=== PATIENT | female | born 1980 | race Caucasian/White ===

== ENCOUNTER → 2016-07-18 | Outpatient (CLI) | payer MEDICARE ==
[2016-07-18 09:11] LABS: ABSOLUTE EOSINOPHILS # (AUTO) 0.1 10^3/uL (0.0-0.6); ABSOLUTE LYMPHOCYTES (AUTO) 1.7 10^3/uL (0.5-4.7); ABSOLUTE MONOCYTES (AUTO) 0.6 10^3/uL (0.1-1.4); BASOPHILS % (AUTO) 0.3 % (0-2); EOSINOPHILS % (AUTO) 1.4 % (0-6); HEMATOCRIT 37.8 % (36.0-47.0); HEMOGLOBIN 12.8 g/dL (12.0-15.5); HGB HCT DIFFERENCE 0.6; LYMPHOCYTES % (AUTO) 26.4 % (13-45); MEAN CORPUSCULAR HGB CONC 33.9 g/dL (32.0-36.0); MEAN CORPUSCULAR VOLUME 88 fl (80-97); MONOCYTES % (AUTO) 9.4 % (3-13); RED BLOOD COUNT 4.28 10^6/uL (3.72-5.28); RED CELL DISTRIBUTION WIDTH 12.2 % (11.5-14.0); SEGMENTED NEUTROPHILS % (AUTO) 62.5 % (42-78); WHITE BLOOD COUNT 6.4 10^3/uL (4.0-10.5)
[2016-07-18 09:25] LABS: ALANINE AMINOTRANSFERASE 33 U/L (9-52); ALBUMIN 4.3 g/dL (3.5-5.0); ALKALINE PHOSPHATASE 97 U/L (38-126); ANION GAP 12 (5-19); ASPARTATE AMINO TRANSFERASE 19 U/L (14-36); BILIRUBIN,TOTAL 1.2 mg/dL (0.2-1.3); BLOOD UREA NITROGEN 18 mg/dL (7-20); CALCIUM 9.6 mg/dL (8.4-10.2); CARBON DIOXIDE 24 mmol/L (22-30); CHLORIDE 105 mmol/L (98-107); CHOLESTEROL 157.91 mg/dL (0-200); CREATININE RESULT 0.83 mg/dL (0.52-1.25); Direct HDL 42 mg/dL (>40); GLUCOSE 99 mg/dL (75-110); POTASSIUM 4.3 mmol/L (3.6-5.0); SODIUM 140.7 mmol/L (137-145); TOTAL PROTEIN 7.3 g/dL (6.3-8.2); TRIGLYCERIDES 80 mg/dL (<150)
[2016-07-18 09:36] LABS: DIRECT LDL 104 mg/dL (<100)
== END ==
LOC: OD 07:48
PROVIDERS: ATTEND Nurse Practitioner Psychiatric/Mental Health
DX: F41.1 Generalized anxiety disorder (principal); N92.6 Irregular menstruation, unspecified; Z79.899 Other long term (current) drug therapy
CPT/HCPCS: 36415; 80053; 80061; 83036; 84703; 85025

== ENCOUNTER 2017-11-02 10:30 | Emergency (ER) | payer MEDICARE ==
[2017-11-02] MEDS ORDERED: NORMAL SALINE 1000 ML 1,000 ML IV ONE ×2 (10:38→12:53)
[2017-11-02 11:03] LABS: HEMATOCRIT 36.3 % (36.0-47.0); HEMOGLOBIN 12.4 g/dL (12.0-15.5); MEAN CORPUSCULAR HGB CONC 34.1 g/dL (32.0-36.0); MEAN CORPUSCULAR VOLUME 94 fl (80-97); PLATELET COUNT 214 10^3/uL (150-450); RED BLOOD COUNT 3.87 10^6/uL (3.72-5.28); RED CELL DISTRIBUTION WIDTH 12.6 % (11.5-14.0); WHITE BLOOD COUNT 10.8 10^3/uL (4.0-10.5)
[2017-11-02 11:08] LABS: APPEARANCE,URINE CLEAR; BILIRUBIN,URINE NEGATIVE (NEGATIVE); COLOR,URINE YELLOW; GLUCOSE, URINE NEGATIVE (NEGATIVE); KETONES,URINE NEGATIVE (NEGATIVE); LEUKOCYTE ESTERASE,URINE NEGATIVE (NEGATIVE); NITRITE,URINE NEGATIVE (NEGATIVE); PROTEIN,URINE NEGATIVE (NEGATIVE); UROBILINOGEN,URINE NEGATIVE mg/dL (<2.0)
[2017-11-02 11:20] LABS: ALANINE AMINOTRANSFERASE 34 U/L (9-52); ALBUMIN 4.3 g/dL (3.5-5.0); ALKALINE PHOSPHATASE 43 U/L (38-126); ANION GAP 14 (5-19); ASPARTATE AMINO TRANSFERASE 20 U/L (14-36); BILIRUBIN,DIRECT 0.2 mg/dL (0.0-0.4); BILIRUBIN,TOTAL 1.1 mg/dL (0.2-1.3); BLOOD UREA NITROGEN 22 mg/dL (7-20); CALCIUM 9.1 mg/dL (8.4-10.2); CARBON DIOXIDE 27 mmol/L (22-30); CHLORIDE 101 mmol/L (98-107); GLUCOSE 117 mg/dL (75-110); POTASSIUM 4.1 mmol/L (3.6-5.0); SODIUM 142.4 mmol/L (137-145)
[2017-11-02] MEDS ORDERED: RINGERS SOLUTION,LACTATED 1,000 ML IV ONE (11:24)
--- NOTE | 2017-11-02 11:30 | ER Document Report ---
ED General - General Chief Complaint: Nausea/Vomiting Stated Complaint: VOMITING Time Seen by Provider: 11/02/17 11:08 Notes: Patient says that she has been sick since about 230 this morning when she started vomiting. She says she is vomited a total of about 4 times, the last about 430 this morning. She does not feel like she is going to vomit anymore. She has not had any change in her bowel habits or diarrhea. She felt lightheaded and felt as if she might pass out. She had generalized aching of her back and her legs as well as a headache. Patient thinks she may have the flu. Has no respiratory symptoms. She went to her local [employer] office where they found her blood pressure was low and her blood sugar was normal. She was referred here by EMS with IV fluids started. Patient has not had any fever. She was well and felt fine yesterday. History of . LMP 10/24. PMH: Hypothyroid, bipolar. TRAVEL OUTSIDE OF THE [place] IN LAST 30 DAYS: No - Related Data Allergies/Adverse Reactions: No Known Allergies Allergy (Verified 05/15/14 10:02) Past Medical History - Social History Smoking Status: Unknown if Ever Smoked Cigarette use (# per day): No Frequency of alcohol use: Occasional Family History: Reviewed & Not Pertinent Patient has suicidal ideation: No Patient has homicidal ideation: No Endocrine Medical History: Reports: Hx Hypothyroidism. Denies: Hx Diabetes Mellitus Type 1, Hx Diabetes Mellitus Type 2, Hx Hyperthyroidism Psychiatric Medical History: Reports: Hx Bipolar Disorder, Hx Depression Past Surgical History: Reports: Hx Section - Immunizations Hx Diphtheria, Pertussis, Tetanus Vaccination: Yes Review of Systems - Review of Systems Notes: REVIEW OF SYSTEMS: CONSTITUTIONAL : Denies fever. EENT: Denies eye, ear, nose or mouth or throat pain or other symptoms. CARDIOVASCULAR: Denies chest pain. RESPIRATORY: Denies cough, chest congestion, or shortness of breath. GASTROINTESTINAL: See HPI. GENITOURINARY: Denies difficulty or painful urinating, urinary frequency, blood in urine. MUSCULOSKELETAL: Denies back or neck pain. Denies joint pain or swelling. SKIN: Denies rash or skin lesions. NEUROLOGICAL: Denies LOC or altered mental status. Denies headache. Denies sensory loss or motor deficits. ALL OTHER SYSTEMS REVIEWED AND NEGATIVE. Physical Exam - Vital signs Vitals: Temp Pulse Resp BP Pulse Ox 98.0 F 92 16 99/64 L 100 11/02/17 10:43 11/02/17 10:43 11/02/17 10:43 11/02/17 10:43 11/02/17 10:43 Interpretation: Normal, Hypotensive - Minimal, patient is a small stature, weighs only about 120 pounds. - Notes Notes: PHYSICAL EXAMINATION: GENERAL: Well-appearing, in no acute distress. Blood pressure slightly low with a systolic of 96. Drinking from a cup with a colored liquid and ice. HEAD: Atraumatic, normocephalic. EYES: Pupils equal round and reactive to light, extraocular movements intact. ENT: oropharynx clear without exudates. Moist mucous membranes. NECK: Normal range of motion, supple. LUNGS: Breath sounds clear and equal bilaterally. HEART: Regular rate and rhythm without murmurs. ABDOMEN: Soft, nontender. No guarding or rebound. No masses. No tenderness in the right lower quadrant. BACK: No tenderness throughout entire back. EXTREMITIES: Normal range of motion without pain. NEUROLOGICAL: Normal speech, normal gait. Normal sensory, motor, and reflex exams. Awake, alert, and oriented x3. Cranial nerves normal. PSYCH: Normal mood, normal affect. SKIN: Warm, dry, no rashes. Course - Re-evaluation Re-evalutation: 11/02/17 12:48 Patient remained stable. She has had nearly 2 L of fluid. Taking p.o. No abdominal pain. CBC shows a white count but slightly elevated, but with a very marked shift with 91 segs and 5 bands. Abdomen remains soft and nontender to press. 11/02/17 14:36 Patient has been up to the restroom without assistance and did fine. She has had 3 L of fluid now. Her blood pressure still remains with a systolic in the 90s, but I do not know what this patient's baseline is. There is no evidence of any bleeding. I repeated a CBC which showed her hemoglobin and white count down slightly, most likely dilutional from the IV fluids. Patient says she is feeling better. I reexamined her abdomen for the third time and there is no tenderness anywhere. She has no UTI symptoms and her urine is negative. She has no URI symptoms. My only concern is patient's white count and particular her shift, but I think this is all probably viral in origin. Her lactic acid level was negative. Patient has no URI symptoms. She has no UTI symptoms. Urine is normal. - Vital Signs Vital signs: Temp Pulse Resp BP Pulse Ox 98.0 F 92 16 99/64 L 100 11/02/17 10:43 11/02/17 10:43 11/02/17 10:43 11/02/17 10:43 11/02/17 10:43 - Laboratory Result Diagrams: 11/02/17 13:17 11/02/17 10:38 Laboratory results interpreted by me: 11/02/17 11/02/17 11/02/17 10:38 10:38 13:17 WBC 10.8 H RBC 3.70 L Hgb 11.7 L Hct 35.0 L Seg Neuts % (Manual) 91 H 90 H Band Neutrophils % 6 H Lymphocytes % (Manual) 2 L 0 L Monocytes % (Manual) 1 L Metamyelocytes % 1 H Abs Neuts (Manual) 10.5 H 8.6 H Abs Lymphs (Manual) 0.2 L 0.0 L BUN 22 H Glucose 117 H Discharge - Discharge Clinical Impression: Vomiting, Viral gastroenteritis, Transient hypotension, Leukocytosis Condition: Stable Disposition: HOME, SELF-CARE Additional Instructions: VOMITING: Vomiting (or nausea without vomiting) can be caused by many other different problems. It can mean that something's wrong with the stomach, such as ulcers or inflammation or the intestinal tract, such as appendicitis. But it can also be a symptom of a problem that has nothing to do with the stomach or intestines. Vomiting is common with severe headaches, earaches, tonsillitis, and kidney infections, etc. We see it with pneumonia or heart attacks. Drugs can cause nausea and vomiting. Many abdominal problems cause vomiting; for example, gallstones, kidney stones, pancreatitis, and intestinal obstruction ( blocked bowels). In most cases, curing the vomiting depends on fixing the problem that caused it. For temporary relief, we may use an anti-nausea medicine. For home use, we can prescribe suppositories, chewable pills, pills that dissolve in the mouth, or liquid anti-nausea drugs. If the vomiting seems to be caused by a problem in the stomach, acid-suppressing drugs may be prescribed as well. It's important to avoid dehydration. Sip small amounts of clear liquids ( soft drinks, tea, broth, etc) . Try to take fluids frequently even if you are vomiting to prevent dehydration. Take increasing amounts of fluid and when liquids are being consumed successfully, advance to small amounts of bland food (toast, soups, mashed potatoes, etc.) until you are able to resume a regular diet. Avoid aspirin, tobacco, and alcohol. If the vomiting worsens, if the problem that's making you vomit worsens, or if there's evidence of bleeding in the stomach (such as black, tarry stool, or bloody or black vomit), you should return immediately. Also, return if abdominal pain worsens or becomes localized to one area or you develop high fever. Call your doctor if you aren't improved in 24 hours. VIRAL SYNDROME: The physician has diagnosed a most likely viral infection. Viruses not only cause "colds," but can cause many different symptoms including generalized aching, fever, headache, cough, diarrhea, nausea, vomiting, and fatigue. The treatment, for the most part, is simply relief of symptoms. This means that antibiotics are usually not given. Rest, fluids, pain medications and, occasionally, medication for the specific symptoms that are most bothersome will be prescribed. Use good handwashing to avoid passing the virus to others. Shared toys should be cleaned with disinfectant. Clean the toilets, sinks, and counter surfaces in bathrooms. Launder clothing in hot water. Contact the physician if you develop any new or unusual symptoms such as severe headache, stiff neck, high fever, chest pain, productive cough, or shortness of breath. You should be rechecked if you don't see marked improvement within seven to 10 days. Viral illnesses generally do not last more than a day or 2 and I would expect that she will feel better tomorrow and back to normal by day after tomorrow. If you do not follow that progression of your illness, return for us to reevaluate you again. INTRAVENOUS (I V) FLUIDS: As part of your care today, you received intravenous (IV) fluids. IV fluids are administered to patients who are dehydrated or to those who have certain chemical (electrolyte) abnormalities that need correcting. ANTINAUSEA MEDICATION: You have been given a medication to suppress nausea and vomiting. This type of medication can be given as a shot, pill, or suppository. It will usually last for many hours. Pills and shots usually last six to eight hours. For the typical illness, only one or two doses of the medication may be necessary. Mild lightheadedness may occur. This type of medicine can cause drowsiness. Do not drive or operate dangerous machinery while under its influence. Do not mix with alcohol. See your doctor at once if you have muscle spasms or tightness, or uncontrollable motions (particularly of the neck, mouth, or jaw). Persistent vomiting or severe lightheadedness should also be evaluated by the physician. Drink plenty of fluids. Return if you begin to run a high fever. Return tomorrow if you are not feeling any better or you have return of your symptoms or new, concerning symptoms. FOLLOW-UP CARE: If you have been referred to a physician for follow-up care, call the physician s office for an appointment as you were instructed or within the next two days. If you experience worsening or a significant change in your symptoms, notify the physician immediately or return to the Emergency Department at any time for re-evaluation.
[2017-11-02 11:48] LABS: ABSOLUTE LYMPHOCYTES# (MANUAL) 0.2 10^3/uL (0.5-4.7); ABSOLUTE MONOCYTES # (MANUAL) 0.1 10^3/uL (0.1-1.4); ABSOLUTE NEUTROPHILS# (MANUAL) 10.5 10^3/uL (1.7-8.2); BAND NEUTROPHILS % (MANUAL) 5 % (3-5); BASOPHILS % (MANUAL) 0 % (0-2); EOSINOPHILS % (MANUAL) 0 % (0-6); LYMPHOCYTES % (MANUAL) 2 % (13-45); METAMYELOCYTES % (MANUAL) 1 % (0); MONOCYTES % (MANUAL) 1 % (3-13); SEGMENTED NEUTROPHILS % (MAN) 91 % (42-78); TOTAL CELLS COUNTED 100
[2017-11-02 11:49] LABS: OVALOCYTES SLIGHT; PLATELET COMMENT ADEQUATE; POIKILOCYTOSIS SLIGHT
[2017-11-02] MEDS ORDERED: ACETAMINOPHEN 325 MG TABLET PO ONE (12:46)
[2017-11-02 13:49] LABS: HEMOGLOBIN 11.7 g/dL (12.0-15.5); MEAN CORPUSCULAR HEMOGLOBIN 31.6 pg (27.0-33.4); MEAN CORPUSCULAR HGB CONC 33.5 g/dL (32.0-36.0); MEAN CORPUSCULAR VOLUME 95 fl (80-97); PLATELET COUNT 203 10^3/uL (150-450); RED CELL DISTRIBUTION WIDTH 12.5 % (11.5-14.0)
[2017-11-02 14:09] LABS: ABSOLUTE MONOCYTES # (MANUAL) 0.4 10^3/uL (0.1-1.4); ABSOLUTE NEUTROPHILS# (MANUAL) 8.6 10^3/uL (1.7-8.2); BAND NEUTROPHILS % (MANUAL) 6 % (3-5); BASOPHILS % (MANUAL) 0 % (0-2); EOSINOPHILS % (MANUAL) 0 % (0-6); LYMPHOCYTES % (MANUAL) 0 % (13-45); MONOCYTES % (MANUAL) 4 % (3-13); PLATELET CLUMPS PRESENT; RBC MORPHOLOGY COMMENT NORMO-CYTIC/CHROMIC; SEGMENTED NEUTROPHILS % (MAN) 90 % (42-78); TOTAL CELLS COUNTED 100; TOXIC GRANULATION SLIGHT; TOXIC VACUOLATION PRESENT
[2017-11-02 14:45] VITALS: BP 96/54
== END 2017-11-02 14:51 | disposition home or self-care (01) ==
LOC: ER 10:30
DX: A08.4 Viral intestinal infection, unspecified (principal); R11.2 Nausea with vomiting, unspecified; I95.9 Hypotension, unspecified; R42 Dizziness and giddiness; M54.9 Dorsalgia, unspecified; R51 Headache; M79.606 Pain in leg, unspecified
CPT/HCPCS: 99284; 96360; 96361; 36415; 87040; 85025; 80053; 81001; 83605; A9270; J7030; J7120

== ENCOUNTER 2017-12-29 15:11 | Emergency (ER) | payer MEDICARE ==
--- NOTE | 2017-12-29 17:25 | ER Document Report ---
ED Dizziness/Weakness - General TRAVEL OUTSIDE OF THE [place] IN LAST 30 DAYS: No - General Chief Complaint: Headache, nausea, dizzy Stated Complaint: DIZZINESS,NAUSIA,HEADACHE Time Seen by Provider: 12/29/17 17:10 - Related Data Allergies/Adverse Reactions: No Known Allergies Allergy (Verified 05/15/14 10:02) Past Medical History - Social History Smoking Status: Never Smoker Chew tobacco use (# tins/day): No Frequency of alcohol use: None Drug Abuse: None Family History: Reviewed & Not Pertinent Patient has suicidal ideation: No Patient has homicidal ideation: No Endocrine Medical History: Reports: Hx Hypothyroidism. Denies: Hx Diabetes Mellitus Type 1, Hx Diabetes Mellitus Type 2, Hx Hyperthyroidism Renal/ Medical History: Denies: Hx Peritoneal Dialysis Psychiatric Medical History: Reports: Hx Bipolar Disorder, Hx Depression Denies: Hx Post Traumatic Stress Disorder, Hx Schizophrenia Past Surgical History: Reports: Hx Section - Immunizations Hx Diphtheria, Pertussis, Tetanus Vaccination: Yes - Vital signs Vitals: Temp Pulse Resp BP Pulse Ox 97.7 F 66 16 96/63 L 99 12/29/17 15:18 12/29/17 15:18 12/29/17 15:18 12/29/17 15:18 12/29/17 15:18 Course - Re-evaluation Re-evalutation: 12/29/17 17:26 Patient signs and symptoms are consistent with peripheral vertigo. Her symptoms started today she has not had recent fevers or illnesses. She does not have any neurologic deficits at this time other than sensation of room spinning that goes away completely with rest and worse with any walking or head movement. The vertigo is worse when she moves her head to the left versus the right. She denies any chest pain shortness of breath cough or congestion She has not had any traumas or falls is not on any blood thinners. We will provide meclizine and return precautions were provided. Will have patient follow-up in the next 3-4 days if symptoms are not improving. (CHRISTINE PA) - Vital Signs Vital signs: Temp Pulse Resp BP Pulse Ox 97.3 F 59 L 16 103/65 100 12/29/17 17:42 12/29/17 17:42 12/29/17 17:42 12/29/17 17:42 12/29/17 17:42 Discharge - Discharge Clinical Impression: BPPV (benign paroxysmal positional vertigo) Qualifiers: Laterality: left Qualified Code(s): H81.12 - Benign paroxysmal vertigo, left ear Condition: Good Disposition: HOME, SELF-CARE Instructions: Antinausea Medication ([facility]) Additional Instructions: If symptoms are not improving in the next 3 or 4 days please return to the emergency department or her primary care physician for reevaluation. If you begin to develop any fevers chills or worsening symptoms that are constant and even without head movement please return for reevaluation as well. Prescriptions: Meclizine HCl 25 mg PO QID PRN #30 tablet PRN Reason: Scribe Attestation: 01/02/18 15:01 I personally performed the services described documentation, reviewed and edited the documentation which was dictated to describe my presence, and it accurately records my words and actions. (CHRISTINE PA)
[2017-12-29 17:43] VITALS: BP 103/65
== END 2017-12-29 17:45 | disposition home or self-care (01) ==
LOC: ER 15:11
DX: H81.12 Benign paroxysmal vertigo, left ear (principal); R51 Headache; R11.0 Nausea; E03.9 Hypothyroidism, unspecified
CPT/HCPCS: 99283

== ENCOUNTER 2018-11-03 19:06 | Emergency (ER) | payer MEDICARE ==
[2018-11-03] MEDS ORDERED: KETOROLAC TROMETHAMINE 60 MG/2 ML SDV IM ONE (21:42)
--- NOTE | 2018-11-03 21:43 | ER Document Report ---
ED General - General Chief Complaint: Back Pain Stated Complaint: LOWER BACK PAIN,VAGINAL BLEEDING,LIGHTHEADEDNESS Time Seen by Provider: 11/03/18 21:10 Primary Care Provider: SHANNON MAGUIRE PA [Primary Care Provider] - Follow up tomorrow Notes: Patient is a 38-year-old female that comes emergency department for chief c omplaint of fatigue, occasional lightheadedness, lack of energy. She also reports pain in her bilateral lower back intermittently. She denies fever/chills, nausea/vomiting, injury. She states that she also started her menstrual cycle yesterday but it is irregular. She took a test yeste rday at home and it was negative. Patient admits that she was seen by primary care recently, diagnosed with "prediabetes", states she went to the extreme and began fasting with severe calorie intake reduction. She has a follow-up tomorrow with them. TRAVEL OUTSIDE OF THE [place] IN LAST 30 DAYS: No - Related Data Allergies/Adverse Reactions: No Known Allergies Allergy (Verified 11/03/18 19:09) Past Medical History - General Information source: Patient - Social History Smoking Status: Never Smoker Chew tobacco use (# tins/day): No Frequency of alcohol use: None Drug Abuse: None Lives with: Family Family History: Reviewed & Not Pertinent Patient has suicidal ideation: No Patient has homicidal ideation: No Endocrine Medical History: Reports: Hx Hypothyroidism. Denies: Hx Diabetes Mellitus Type 1, Hx Diabetes Mellitus Type 2, Hx Hyperthyroidism Renal/ Medical History: Denies: Hx Peritoneal Dialysis Psychiatric Medical History: Reports: Hx Bipolar Disorder, Hx Depression Denies: Hx Post Traumatic Stress Disorder, Hx Schizophrenia Past Surgical History: Reports: Hx Section - Immunizations Hx Diphtheria, Pertussis, Tetanus Vaccination: Yes Review of Systems - Review of Systems Constitutional: No symptoms reported EENT: No symptoms reported Cardiovascular: No symptoms reported Respiratory: No symptoms reported Gastrointestinal: See HPI Genitourinary: See HPI Female Genitourinary: See HPI Musculoskeletal: No symptoms reported Skin: No symptoms reported Hematologic/Lymphatic: No symptoms reported Neurological/Psychological: No symptoms reported Physical Exam - Vital signs Vitals: Temp Pulse Resp BP Pulse Ox 98.7 F 102 H 16 103/74 97 11/03/18 19:22 11/03/18 19:22 11/03/18 19:22 11/03/18 19:22 11/03/18 19:22 - Notes Notes: GENERAL: Alert, interacts well. No acute distress. HEAD: Normocephalic, atraumatic. EYES: Pupils equal, round, and reactive to light. Extraocular movements intact. ENT: Oral mucosa moist, tongue midline. Oropharynx unremarkable. Airway patent. Nares patent, no nasal septal hematoma, TM's intact. NECK: Full range of motion. Supple. Trachea midline. LUNGS: Clear to auscultation bilaterally, no wheezes, rales, or rhonchi. No respiratory distress. HEART: Regular rate and rhythm. No murmur ABDOMEN: Soft, non-tender. Non-distended. Bowel sounds present in all 4 quadrants. GENITOURINARY: Deferred EXTREMITIES: Moves all 4 extremities spontaneously. No edema, normal radial and dorsalis pedis pulses bilaterally. No cyanosis. BACK: no cervical, thoracic, lumbar midline tenderness. No saddle anesthesia, normal distal neurovascular exam. NEUROLOGICAL: Alert and oriented x3. Normal speech. Cranial nerves II through XII grossly intact. PSYCH: Normal affect, normal mood. SKIN: Warm, dry, normal turgor. No rashes or lesions noted. Course - Re-evaluation Re-evalutation: Patient with very vague reported flank pain, no flank pain noted on exam, abdomen is completely unremarkable. Patient is mostly concerned about her possible prediabetic diagnosis and possible anemia. Her vital signs are unremarkable. CBC unremarkable without concerning anemia like patient is telling me she might have, chemistry showing hyperglycemia at 196 without acidosis. Urinalysis unremarkable. test is negative. Discussed results with patient. On reevaluation she has no symptoms or complaints. Provided her with a copy of her labs, she states she has a primary care follow-up tomorrow for additional management. I suspect the patient's fasting and bizarre diet change could be influencing her symptoms including irregular menses. Discussed follow-up and return precautions. Patient states satisfaction agreement. - Vital Signs Vital signs: Temp Pulse Resp BP Pulse Ox 97.5 F 84 16 101/66 100 11/04/18 00:01 11/04/18 00:01 11/04/18 00:01 11/04/18 00:01 11/04/18 00:01 - Laboratory Result Diagrams: 11/03/18 22:29 11/03/18 22:29 Laboratory results interpreted by me: 11/03/18 11/03/18 22:29 22:45 Glucose 196 H Urine Ketones TRACE H Urine Blood SMALL H Discharge - Discharge Clinical Impression: Flank pain, Irregular menses Condition: Stable Disposition: HOME, SELF-CARE Additional Instructions: Your test is negative. Your irregular menstrual cycle is most likely because of the drastic change in your diet recently. Your blood sugar is 196, however your blood is not acidic. This needs to be monitored and managed by your primary care. See them in close follow-up. Return to the emergency department for any concerning symptoms including severe abdominal pain, vomiting, fever, or any other concerning symptoms. Referrals: SHANNON MAGUIRE PA [Primary Care Provider] - Follow up tomorrow
[2018-11-03 23:00] LABS: ABSOLUTE EOSINOPHILS # (AUTO) 0.1 10^3/uL (0.0-0.6); ABSOLUTE LYMPHOCYTES (AUTO) 1.6 10^3/uL (0.5-4.7); ABSOLUTE MONOCYTES (AUTO) 0.6 10^3/uL (0.1-1.4); ABSOLUTE NEUT (AUTO) 4.7 10^3/uL (1.7-8.2); BASOPHILS % (AUTO) 0.2 % (0-2); HEMATOCRIT 38.5 % (36.0-47.0); HEMOGLOBIN 13.3 g/dL (12.0-15.5); LYMPHOCYTES % (AUTO) 23.2 % (13-45); MEAN CORPUSCULAR HEMOGLOBIN 30.5 pg (27.0-33.4); MEAN CORPUSCULAR HGB CONC 34.5 g/dL (32.0-36.0); MEAN CORPUSCULAR VOLUME 88 fl (80-97); MONOCYTES % (AUTO) 8.7 % (3-13); PLATELET COUNT 349 10^3/uL (150-450); RED BLOOD COUNT 4.36 10^6/uL (3.72-5.28); RED CELL DISTRIBUTION WIDTH 12.5 % (11.5-14.0); SEGMENTED NEUTROPHILS % (AUTO) 66.9 % (42-78); TOTAL CELLS COUNTED % (AUTO) 100 %; WHITE BLOOD COUNT 7.1 10^3/uL (4.0-10.5)
[2018-11-03 23:06] LABS: ANION GAP 9 (5-19); BLOOD UREA NITROGEN 8 mg/dL (7-20); CALCIUM 9.7 mg/dL (8.4-10.2); CARBON DIOXIDE 25 mmol/L (22-30); CHLORIDE 104 mmol/L (98-107); GLUCOSE 196 mg/dL (75-110); POTASSIUM 3.6 mmol/L (3.6-5.0); SODIUM 138.1 mmol/L (137-145)
[2018-11-03 23:06] LABS: APPEARANCE,URINE CLEAR; BILIRUBIN,URINE NEGATIVE (NEGATIVE); COLOR,URINE STRAW; GLUCOSE, URINE NEGATIVE (NEGATIVE); KETONES,URINE TRACE mg/dL (NEGATIVE); LEUKOCYTE ESTERASE,URINE NEGATIVE (NEGATIVE); NITRITE,URINE NEGATIVE (NEGATIVE); PROTEIN,URINE NEGATIVE (NEGATIVE); URINE SPECIFIC GRAVITY 1.005; UROBILINOGEN,URINE NEGATIVE mg/dL (<2.0)
[2018-11-04 00:03] VITALS: BP 101/66
== END 2018-11-04 00:03 | disposition home or self-care (01) ==
LOC: ER 19:06
DX: M54.9 Dorsalgia, unspecified (principal); R42 Dizziness and giddiness; N92.6 Irregular menstruation, unspecified
CPT/HCPCS: 99283; 96372; 36415; 85025; 81025; 80048; 81001; J1885

== ENCOUNTER 2019-06-21 17:32 | Emergency (ER) | payer MEDICARE ==
[2019-06-21] MEDS ORDERED: NORMAL SALINE 1000 ML 1,000 ML IV ONE (17:38)
[2019-06-21] MEDS ORDERED: ONDANSETRON HCL INJ/PF 4 MG/2 ML SDV IV ONE (17:38)
[2019-06-21 18:20] LABS: HEMATOCRIT 34.5 % (36.0-47.0); HEMOGLOBIN 11.8 g/dL (12.0-15.5); MEAN CORPUSCULAR HEMOGLOBIN 31.2 pg (27.0-33.4); MEAN CORPUSCULAR HGB CONC 34.2 g/dL (32.0-36.0); MEAN CORPUSCULAR VOLUME 91 fl (80-97); PLATELET COUNT 236 10^3/uL (150-450); RED BLOOD COUNT 3.79 10^6/uL (3.72-5.28); RED CELL DISTRIBUTION WIDTH 12.5 % (11.5-14.0); WHITE BLOOD COUNT 6.5 10^3/uL (4.0-10.5)
[2019-06-21 18:39] LABS: ABSOLUTE LYMPHOCYTES# (MANUAL) 0.2 10^3/uL (0.5-4.7); ABSOLUTE MONOCYTES # (MANUAL) 0.3 10^3/uL (0.1-1.4); BASOPHILS % (MANUAL) 0 % (0-2); EOSINOPHILS % (MANUAL) 0 % (0-6); LYMPHOCYTES % (MANUAL) 3 % (13-45); MONOCYTES % (MANUAL) 4 % (3-13); SEGMENTED NEUTROPHILS % (MAN) 93 % (42-78); TOTAL CELLS COUNTED 100
[2019-06-21 18:40] LABS: PLATELET COMMENT ADEQUATE
[2019-06-21 18:53] LABS: ALBUMIN 3.7 g/dL (3.5-5.0); ALKALINE PHOSPHATASE 50 U/L (38-126); ANION GAP 12 (5-19); ASPARTATE AMINO TRANSFERASE 16 U/L (14-36); BILIRUBIN,DIRECT 0.1 mg/dL (0.0-0.4); BILIRUBIN,TOTAL 0.5 mg/dL (0.2-1.3); BLOOD UREA NITROGEN 13 mg/dL (7-20); CALCIUM 8.4 mg/dL (8.4-10.2); CARBON DIOXIDE 19 mmol/L (22-30); CHLORIDE 104 mmol/L (98-107); GLUCOSE 118 mg/dL (75-110); POTASSIUM 3.3 mmol/L (3.6-5.0); TOTAL PROTEIN 6.4 g/dL (6.3-8.2)
[2019-06-21 19:03] LABS: APPEARANCE,URINE SLIGHTLY-CLOUDY; BILIRUBIN,URINE NEGATIVE (NEGATIVE); COLOR,URINE YELLOW; GLUCOSE, URINE NEGATIVE (NEGATIVE); KETONES,URINE NEGATIVE (NEGATIVE); LEUKOCYTE ESTERASE,URINE NEGATIVE (NEGATIVE); NITRITE,URINE NEGATIVE (NEGATIVE); PROTEIN,URINE NEGATIVE (NEGATIVE); URINE SPECIFIC GRAVITY 1.005; UROBILINOGEN,URINE NEGATIVE mg/dL (<2.0)
[2019-06-21] MEDS ORDERED: RINGERS SOLUTION,LACTATED 1,000 ML IV ONE (21:33)
--- NOTE | 2019-06-21 21:36 | ER Document Report ---
ED General - General Chief Complaint: Flu Symptoms Stated Complaint: NAUSEA/VOMITING Time Seen by Provider: 06/21/19 21:27 Primary Care Provider: SHANNON MAGUIRE PA [Primary Care Provider] - Follow up as needed Notes: Patient is a 38-year-old female that comes emergency department for chief complaint of nausea and vomiting with chills and body aches. She states that this started this morning, she vomited very many times, went to urgent care and was sent here for IV fluids and because of low blood pressure. Patient states that both her and her daughter have been vomiting and have had the same symptoms. Patient denies diarrhea, any particular abdominal pain. Patient states she feels somewhat better after IV nausea medication and she ate something before I entered the room. She states that earlier when she tried to stand up she became very dizzy. Past medical history of hypothyroidism, bipolar disorder. She denies any other medical history. She states that every time she gets gastroenteritis/a stomach virus she has similar symptoms and requires IV fluids. TRAVEL OUTSIDE OF THE [place] IN LAST 30 DAYS: No - Related Data Allergies/Adverse Reactions: No Known Allergies Allergy (Verified 06/21/19 18:56) Past Medical History - General Information source: Patient - Social History Smoking Status: Never Smoker Chew tobacco use (# tins/day): No Frequency of alcohol use: None Drug Abuse: None Lives with: Family Family History: Reviewed & Not Pertinent Patient has suicidal ideation: No Patient has homicidal ideation: No Endocrine Medical History: Reports: Hx Hypothyroidism. Denies: Hx Diabetes Mellitus Type 1, Hx Diabetes Mellitus Type 2, Hx Hyperthyroidism Renal/ Medical History: Denies: Hx Peritoneal Dialysis Psychiatric Medical History: Reports: Hx Bipolar Disorder, Hx Depression Denies: Hx Post Traumatic Stress Disorder, Hx Schizophrenia Past Surgical History: Reports: Hx Section - Immunizations Hx Diphtheria, Pertussis, Tetanus Vaccination: Yes Review of Systems - Review of Systems Constitutional: See HPI EENT: No symptoms reported Cardiovascular: No symptoms reported Respiratory: No symptoms reported Gastrointestinal: See HPI Genitourinary: No symptoms reported Female Genitourinary: No symptoms reported Musculoskeletal: No symptoms reported Skin: No symptoms reported Hematologic/Lymphatic: No symptoms reported Neurological/Psychological: No symptoms reported Physical Exam - Vital signs Vitals: Temp Pulse Resp BP Pulse Ox 99.1 F 91 23 H 93/60 L 99 06/21/19 17:32 06/21/19 17:32 06/21/19 17:32 06/21/19 17:32 06/21/19 17:32 - Notes Notes: GENERAL: Alert, interacts well. No acute distress. HEAD: Normocephalic, atraumatic. EYES: Pupils equal, round, and reactive to light. Extraocular movements intact. ENT: Oral mucosa dry, tongue midline. Oropharynx unremarkable. Airway patent. LUNGS: Clear to auscultation bilaterally, no wheezes, rales, or rhonchi. No respiratory distress. HEART: Regular rate and rhythm. No murmur ABDOMEN: Soft, non-tender. Non-distended. Bowel sounds present in all 4 quadrants. GENITOURINARY: Deferred EXTREMITIES: Moves all 4 extremities spontaneously. No edema, normal radial and dorsalis pedis pulses bilaterally. No cyanosis. BACK: no cervical, thoracic, lumbar midline tenderness. No saddle anesthesia, normal distal neurovascular exam. Moves all extremities in full range of motion. NEUROLOGICAL: Alert and oriented x3. Normal speech. Cranial nerves II through XII grossly intact. PSYCH: Normal affect, normal mood. SKIN: Warm, dry, normal turgor. No rashes or lesions noted. Course - Re-evaluation Re-evalutation: On my evaluation patient does have low blood pressure. She states she feels somewhat better after Zofran and IV fluids. Her abdomen is soft and benign. She has no other complaints at this time. We will attempt p.o. trial and give her lactated Ringer's and reevaluate. CBC shows mild leukocytosis with elevation of neutrophils but no bandemia. Nonspecific given her very benign evaluation. CMP shows low bicarbonate at 19, slightly low potassium at 3.3 consistent with her reported symptoms. Urinalysis was now obtained and is unremarkable. After eating patient tolerated this well, after IV fluids patient denies any current symptoms. She was able to stand, she actually had an increase in her b lood pressure when she stood. I did review previous records, her blood pressure seems to range from 90s to low 100 systolic based on her previous evaluation here. Patient has multiple sick contacts with the same symptoms. She is requesting to leave. Patient will be discharged with nausea medication, recommendations, follow-up, return precautions. Patient states appreciation and agreement. - Vital Signs Vital signs: Temp Pulse Resp BP Pulse Ox 99.1 F 85 13 92/64 L 100 06/21/19 17:32 06/21/19 23:04 06/21/19 23:38 06/21/19 23:38 06/21/19 23:38 - Laboratory Result Diagrams: 06/21/19 17:50 06/21/19 17:50 Laboratory results interpreted by me: 06/21/19 06/21/19 17:50 17:50 Hgb 11.8 L Hct 34.5 L Seg Neuts % (Manual) 93 H Lymphocytes % (Manual) 3 L Abs Lymphs (Manual) 0.2 L Sodium 135.3 L Potassium 3.3 L Carbon Dioxide 19 L Glucose 118 H Discharge - Discharge Clinical Impression: Dehydration Nausea and vomiting Qualifiers: Vomiting type: unspecified Vomiting Intractability: non-intractable Qualified Code(s): R11.2 - Nausea with vomiting, unspecified Condition: Stable Disposition: HOME, SELF-CARE Additional Instructions: You have been treated for nausea, vomiting, dehydration. This appears to be from a viral gastroenteritis. This should resolve with time. Take the nausea medication as prescribed, take the famotidine daily as prescribed, start with b land food and slowly progress. Return for any worsening symptoms including uncontrolled vomiting, severe developing abdominal pain, passing out, or any other concerning or worsening symptoms. Prescriptions: Famotidine [Pepcid 20 mg Tablet] 20 mg PO BID #14 tablet Ondansetron [Zofran Odt 4 mg Tablet] 1 - 2 tab PO Q4H PRN #15 tab.rapdis PRN Reason: For Nausea/Vomiting Referrals: SHANNON MAGUIRE PA [Primary Care Provider] - Follow up as needed
[2019-06-21] MEDS ORDERED: ONDANSETRON ODT 4 MG TAB (6 TAB/ER DISP) PO PRN (23:31)
[2019-06-21 23:40] VITALS: BP 92/64
== END 2019-06-21 23:48 | disposition home or self-care (01) ==
LOC: ER 17:32
DX: R11.2 Nausea with vomiting, unspecified (principal); E86.0 Dehydration; M79.10 Myalgia, unspecified site; R42 Dizziness and giddiness
CPT/HCPCS: 99283; 96361; 96374; 36415; 85025; 80053; 81001; J2405; J7030; J7120; A9270

== ENCOUNTER 2019-07-23 09:19 | Emergency (ER) | payer MEDICARE ==
[2019-07-23 09:26] VITALS: BP 120/79
[2019-07-23] MEDS ORDERED: METOPROLOL SUCCINATE 50 MG TAB.SR.24H PO ONE (10:06)
[2019-07-23] MEDS ORDERED: KETOROLAC TROMETHAMINE 60 MG/2 ML SDV IM ONE (10:06)
--- NOTE | 2019-07-23 10:11 | ER Document Report ---
HPI - HPI Time Seen by Provider: 07/23/19 09:51 Pain Level: 3 Notes: Patient is a 38-year-old female with a history of bipolar and migraines who presents complaining of a dull headache since being out of her Topamax for the past 5 days. She takes 200 mg extended release nightly. Patient states that this is not the worst headache of her life and did not start as a thunderclap. Denies drug allergies. Patient is primarily requesting a dose today until she can fill her prescription in the next couple days. Patient states that it does cost a lot of money for the co-pay which is why they have to buy it weekly. She is otherwise able to eat and drink without difficulty. She is urinating normally. Denies any fever, head injury, neck pain, changes in vision/speech/mentation/hearing, URI, sore throat, chest pain, palpitations, syncope, cough, shortness of breath, wheeze, dyspnea, abdominal pain, nausea/vomiting/diarrhea, urinary retention, dysuria, hematuria, loss of control of bowel or bladder, numbness/tingling, saddle anesthesia, muscle paralysis/weakness, or rash. - ROS Systems Reviewed and Negative: Yes All other systems reviewed and negative - CONSTITUTIONAL Constitutional: DENIES: Fever, Chills - NEURO Neurology: REPORTS: Headache - REPRODUCTIVE Reproductive: DENIES: : Past Medical History - Social History Smoking Status: Unknown if Ever Smoked Family History: Reviewed & Not Pertinent Patient has suicidal ideation: No Patient has homicidal ideation: No Neurological Medical History: Reports: Hx Migraine Endocrine Medical History: Reports: Hx Hypothyroidism. Denies: Hx Diabetes Mellitus Type 1, Hx Diabetes Mellitus Type 2, Hx Hyperthyroidism Renal/ Medical History: Denies: Hx Peritoneal Dialysis Psychiatric Medical History: Reports: Hx Bipolar Disorder, Hx Depression Denies: Hx Post Traumatic Stress Disorder, Hx Schizophrenia Past Surgical History: Reports: Hx Section - Immunizations Hx Diphtheria, Pertussis, Tetanus Vaccination: Yes Vertical Provider Document - CONSTITUTIONAL Agree With Documented VS: Yes Notes: PHYSICAL EXAMINATION: GENERAL: Well-appearing, well-nourished and in no acute distress. A&Ox4. Answers questions appropriately. HEAD: Atraumatic, normocephalic. Non-tender. EYES: Pupils equal round and reactive to light, extraocular movements intact, sclera anicteric, conjunctiva are normal. No nystagmus. vis guadalupe intact. ENT: Nares patent and without discharge. oropharynx clear without exudates. No tonsilar hypertrophy or erythema. Moist mucous membranes. No sinus tenderness. NECK: Normal range of motion, supple without lymphadenopathy. No rigidity/meningismus. No midline tenderness. LUNGS: Breath sounds clear to auscultation bilaterally and equal. No wheezes rales or rhonchi. HEART: Regular rate and rhythm without murmurs, rubs, gallops. Musculoskeletal: Ext b/l: FROM to passive/active. Strength 5+/5. No deficits noted. No bony tenderness of extremities. Extremities: No cyanosis, clubbing, or edema b/l. Peripheral pulses 2+. Capillary refill less than 2 seconds. NEUROLOGICAL: NIH 0. GCS 15. Cranial nerves grossly intact. Normal speech, normal gait. Normal sensory, motor exams. Reflexes 2+ b/l. RICHARD's negative. Pronator drift negative. Heel/aponte, finger/nose wnl. Romberg neg. PSYCH: Normal mood, normal affect. SKIN: Warm, Dry, normal turgor, no rashes or lesions noted. - INFECTION CONTROL TRAVEL OUTSIDE OF THE [place] IN LAST 30 DAYS: No Course - Re-evaluation Re-evalutation: 07/23/19 10:10 Patient is an afebrile, well-hydrated, 38-year-old female who presents to the ED with a headache, suspect tension vs migrainous. Vitals are acceptable without any significant tachycardia, tachypnea, or hypoxia. PE is otherwise unremarkable for any focal neurological deficits. NIH 0, GCS 15, cranial nerves grossly intact. Patient has had headaches like this in the past recently. No labs or imaging warranted at this time based on H&P. Patient was given Toradol and her dose of compazine. She is nontoxic-appearing and is tolerating p.o. without any difficulties. Low suspicion for any acute glaucoma, temporal arteritis, meningitis, intracranial hemorrhage, ischemic stroke, or fracture at this time. Patient is aware that this condition can change from initial presentation and that she needs to monitor symptoms closely for any acute changes. Recheck with your PCM/neurologist in 3-5 days. Return to the ED with any worsening/concerning symptoms otherwise as reviewed in discharge. Patient is in agreement. - Vital Signs Vital signs: Temp Pulse Resp BP Pulse Ox 98.4 F 77 20 120/79 100 07/23/19 09:24 07/23/19 09:24 07/23/19 09:24 07/23/19 09:24 07/23/19 09:24 Discharge - Discharge Clinical Impression: Headache Qualifiers: Headache type: unspecified Headache chronicity pattern: acute headache Intractability: not intractable Qualified Code(s): R51 - Headache Condition: Stable Disposition: HOME, SELF-CARE Additional Instructions: Rest, Ice/cool compress Tylenol/ibuprofen as needed Light stretches daily Strength exercises as able Moist heat and massage may help F/u with your PCP in 3-5 days for a recheck Consider consult(s) with Neurology for ongoing/worsening symptoms Return to the ED with any worsening symptoms and/or development of fever, h eadache, changes in behavior/mentation/vision/speech, chest pain, palpitations, syncope, shortness of breath, trouble breathing, abdominal pain, n/v/d, blood in stool/urine, loss of control of bowel/bladder, urinary retention, muscle weakness/paralysis, saddle anesthesia, numbness/tingling, or other worsening symptoms that are concerning to you. Referrals: SHANNON MAGUIRE PA [Primary Care Provider] - Follow up as needed
== END 2019-07-23 10:30 | disposition home or self-care (01) ==
LOC: ER 09:19
DX: R51 Headache (principal)
CPT/HCPCS: 99283; 96372; J1885; A9270

== ENCOUNTER 2020-03-09 18:23 | Emergency (ER) | payer MEDICARE ==
--- NOTE | 2020-03-09 18:50 | ER Document Report ---
ED Medical Screen (RME) - General Chief Complaint: Vaginal Bleeding Stated Complaint: VAGINAL BLEEDING Time Seen by Provider: 03/09/20 18:49 Primary Care Provider: SHANNON MAGUIRE PA [Primary Care Provider] - Follow up as needed Mode of Arrival: Ambulatory Information source: Patient Notes: 39-year-old female presents to ED for complaint of severe vaginal bleeding with cramping and clots. She states she had a miscarriage on 09 February she was cleared by OB on 12 February. She states her bleeding slowed down around the and then around the it started bleeding again real heavy and then about the she started having clots. She states her last hCG level at [facility] was last Thursday and was 40. She states she started having the leg cramps is making her very concerned. She is alert oriented respirations regular nonlabored speaking in full sentences. I have greeted and performed a rapid initial assessment of this patient. A comprehensive ED assessment and evaluation of the patient, analysis of test results and completion of medical decision making process will be conducted by an additional ED providers. TRAVEL OUTSIDE OF THE [place] IN LAST 30 DAYS: No - Related Data Allergies/Adverse Reactions: No Known Allergies Allergy (Verified 06/21/19 18:56) Past Medical History Neurological Medical History: Reports: Hx Migraine Endocrine Medical History: Reports: Hx Hypothyroidism. Denies: Hx Diabetes Mellitus Type 1, Hx Diabetes Mellitus Type 2, Hx Hyperthyroidism Renal/ Medical History: Denies: Hx Peritoneal Dialysis Psychiatric Medical History: Reports: Hx Bipolar Disorder, Hx Depression Denies: Hx Post Traumatic Stress Disorder, Hx Schizophrenia Past Surgical History: Reports: Hx Section - Immunizations Hx Diphtheria, Pertussis, Tetanus Vaccination: Yes Physical Exam - Vital signs Vitals: Temp Pulse Resp BP Pulse Ox 98.3 F 70 16 103/64 100 03/09/20 18:36 03/09/20 18:36 03/09/20 18:36 03/09/20 18:36 03/09/20 18:36 Course - Vital Signs Vital signs: Temp Pulse Resp BP Pulse Ox 98.3 F 70 16 103/64 100 03/09/20 18:36 03/09/20 18:36 03/09/20 18:36 03/09/20 18:36 03/09/20 18:36 Doctor's Discharge - Discharge Referrals: SHANNON MAGUIRE PA [Primary Care Provider] - Follow up as needed
[2020-03-09 19:39] LABS: APPEARANCE,URINE CLEAR; BILIRUBIN,URINE NEGATIVE (NEGATIVE); COLOR,URINE STRAW; GLUCOSE, URINE NEGATIVE (NEGATIVE); KETONES,URINE NEGATIVE (NEGATIVE); LEUKOCYTE ESTERASE,URINE NEGATIVE (NEGATIVE); NITRITE,URINE NEGATIVE (NEGATIVE); PROTEIN,URINE NEGATIVE (NEGATIVE); URINE SPECIFIC GRAVITY 1.003; UROBILINOGEN,URINE NEGATIVE mg/dL (<2.0)
[2020-03-09 19:44] LABS: ABSOLUTE EOSINOPHILS # (AUTO) 0.1 10^3/uL (0.0-0.6); ABSOLUTE MONOCYTES (AUTO) 0.5 10^3/uL (0.1-1.4); ABSOLUTE NEUT (AUTO) 3.6 10^3/uL (1.7-8.2); BASOPHILS % (AUTO) 0.3 % (0-2); EOSINOPHILS % (AUTO) 1.7 % (0-6); HEMATOCRIT 34.6 % (36.0-47.0); HEMOGLOBIN 11.6 g/dL (12.0-15.5); LYMPHOCYTES % (AUTO) 31.9 % (13-45); MEAN CORPUSCULAR HEMOGLOBIN 31.3 pg (27.0-33.4); MEAN CORPUSCULAR HGB CONC 33.6 g/dL (32.0-36.0); MEAN CORPUSCULAR VOLUME 93 fl (80-97); MONOCYTES % (AUTO) 8.3 % (3-13); PLATELET COUNT 327 10^3/uL (150-450); RED BLOOD COUNT 3.72 10^6/uL (3.72-5.28); RED CELL DISTRIBUTION WIDTH 13.8 % (11.5-14.0); SEGMENTED NEUTROPHILS % (AUTO) 57.8 % (42-78); TOTAL CELLS COUNTED % (AUTO) 100 %; WHITE BLOOD COUNT 6.3 10^3/uL (4.0-10.5)
[2020-03-09 19:49] LABS: ALBUMIN 4.4 g/dL (3.5-5.0); ALKALINE PHOSPHATASE 54 U/L (38-126); ANION GAP 11 (5-19); ASPARTATE AMINO TRANSFERASE 20 U/L (14-36); BILIRUBIN,DIRECT 0.2 mg/dL (0.0-0.4); BILIRUBIN,TOTAL 0.5 mg/dL (0.2-1.3); BLOOD UREA NITROGEN 12 mg/dL (7-20); CALCIUM 9.1 mg/dL (8.4-10.2); CARBON DIOXIDE 23 mmol/L (22-30); CHLORIDE 106 mmol/L (98-107); GLUCOSE 82 mg/dL (75-110); POTASSIUM 3.9 mmol/L (3.6-5.0); TOTAL PROTEIN 7.2 g/dL (6.3-8.2)
--- NOTE | 2020-03-09 19:51 | RADIOLOGY REPORT (SQ) ---
EXAM DESCRIPTION: U/S NON-OB PELVIS TV W/O DOP IMAGES COMPLETED DATE/TIME: 03/09/2020 7:39 pm REASON FOR STUDY: Miscarriage February 09 heavier bleeding cramping COMPARISON: None. TECHNIQUE: Dynamic and static grayscale images acquired of the pelvis via transvaginal approach and recorded on PACS. Additional selected color Doppler and spectral images recorded. LIMITATIONS: None. FINDINGS: UTERUS: Contour normal. No mass. Uterus is 9 x 5 x 5 cm size ENDOMETRIAL STRIPE: Thickened and heterogeneous with increased color flow, particularly along the low er uterine segment. This worrisome for retained products of conception. Hypervascular tissue in the lower uterine segment measures about 3 x 1 x 1 cm size CERVIX: No nabothian cysts. Closed, 2.2 cm in length. RIGHT OVARY AND DOPPLER: Normal size, 3.5 x 2.7 x 2.1 cm. No worrisome masses. Normal color-flow. LEFT OVARY AND DOPPLER: Normal size, 3.3 x 1.5 x 1.7 cm. No worrisome masses. Normal color-flow. FREE FLUID: Small amount of free fluid in the posterior cul-de-sac. OTHER: No other significant finding. IMPRESSION: Heterogeneous soft tissue along the lower uterine segment with markedly increased color flow. This is worrisome for retained products of conception. TECHNICAL DOCUMENTATION: JOB ID: [id number] [employer]- All Rights Reserved Rev-11/27 Reading location - IP/workstation name: [id number]
--- NOTE | 2020-03-09 21:14 | RADIOLOGY REPORT (SQ) ---
EXAM DESCRIPTION: ULTRASOUND- left lower extremity venous Doppler ultrasound CLINICAL HISTORY: History of cramping of the left lower extremity. COMPARISON: None available TECHNIQUE: Mercado scale, color and Doppler sonographic evaluation of the left lower extremity was performed. FINDINGS: There is no evidence of acute/chronic deep venous thrombosis in the left common femoral through proximal calf veins, including the popliteal,posterior tibial veins and left greater saphenous vein/common femoral vein junction. Normal color/phasic flow, augmentation, compressibility and lack of filling defects, is demonstrated in these visualized vessels. IMPRESSION: Negative for deep vein thrombosis in the evaluated left lower extremity deep venous system.
--- NOTE | 2020-03-09 22:35 | ER Document Report ---
ED GI/ - General Chief Complaint: Abdominal Pain Stated Complaint: VAGINAL BLEEDING Time Seen by Provider: 03/09/20 18:49 Primary Care Provider: SHANNON MAGUIRE PA [Primary Care Provider] - Follow up as needed Mode of Arrival: Ambulatory Notes: 03/09/20 18:46 - ED Nursing Note by SARAYSEPIDEHANAVIDYA Hidalog Num: [id number] : 1980 Patient Age: 39 Pt arrives to Er today for c/o abdominal cramping and vaginal bleeding along with lower back pain and left leg cramping, pt states she had a miscarriage on February 09 and she past the fetus on the and was cleared on the 12 of February pt states she slowed down with bleeding the 14th and then on the 18 started heavy bleeding again and then on the she started passing clots, pt states she also notice swelling and pain in left lower leg. ED Medical Screen (Fly notes) - General Chief Complaint: Vaginal Bleeding Stated Complaint: VAGINAL BLEEDING Time Seen by Provider: 03/09/20 18:49 Primary Care Provider: SHANNON MAGUIRE PA [Primary Care Provider] - Follow up as needed Mode of Arrival: Ambulatory Information source: Patient Notes: 39-year-old female presents to ED for complaint of severe vaginal bleeding with cramping and clots. She states she had a miscarriage on 09 February she was cleared by OB on 12 February. She states her bleeding slowed down around the 14th and then around the 18th it started bleeding again real heavy and then about the she started having clots. She states her last hCG level at [facility] was last Thursday and was 40. She states she started having the leg cramps is making her very concerned. She is alert oriented respirations regular nonlabored speaking in full sentences. My Notes 39-year-old female arrives with chief complaint of continued vaginal bleeding since she had a miscarriage on 09 February. Patient reports she was 7 to 8 weeks when she had her miscarriage. Patient had also swelling of her left lower extremity as well as the vaginal bleeding and had a transvaginal ultrasound which was positive for retained conceptual products. Her left lower extremity ultrasound was negative for DVT. Her CBC was within normal limits and she had a 13 hCG serum. Urinalysis showed some RBC. I spoke with Dr. Dietz at [id number] and she advises calling her office on Thursday for appointment and also to give patient 800 of Cytotec to be applied vaginally at nighttime until seen by Dr. Dietz. Also we wrote for Zofran for nausea and Delmont for pain. TRAVEL OUTSIDE OF THE [place] IN LAST 30 DAYS: No - HPI Patient complains to provider of: Abdominal pain, Vaginal bleeding Onset: Other - x 1 month Quality of pain: Achy Severity at maximum: Mild Severity in ED: Moderate Pain Level: 2 - Related Data Allergies/Adverse Reactions: No Known Allergies Allergy (Verified 06/21/19 18:56) Past Medical History - General Information source: Patient - Social History Smoking Status: Never Smoker Cigarette use (# per day): No Chew tobacco use (# tins/day): No Smoking Education Provided: No Frequency of alcohol use: None Drug Abuse: None Lives with: Family Family History: Reviewed & Not Pertinent Patient has suicidal ideation: No Patient has homicidal ideation: No Neurological Medical History: Reports: Hx Migraine Endocrine Medical History: Reports: Hx Hypothyroidism. Denies: Hx Diabetes Mellitus Type 1, Hx Diabetes Mellitus Type 2, Hx Hyperthyroidism Renal/ Medical History: Denies: Hx Peritoneal Dialysis Psychiatric Medical History: Reports: Hx Bipolar Disorder, Hx Depression Denies: Hx Post Traumatic Stress Disorder, Hx Schizophrenia Past Surgical History: Reports: Hx Section - Immunizations Hx Diphtheria, Pertussis, Tetanus Vaccination: Yes Review of Systems - Review of Systems Constitutional: See HPI, Malaise EENT: No symptoms reported Cardiovascular: No symptoms reported Respiratory: No symptoms reported Gastrointestinal: See HPI, Abdominal pain Genitourinary: No symptoms reported Female Genitourinary: See HPI, Vaginal bleeding Musculoskeletal: No symptoms reported Skin: No symptoms reported Hematologic/Lymphatic: No symptoms reported Neurological/Psychological: No symptoms reported Physical Exam - Vital signs Vitals: Temp Pulse Resp BP Pulse Ox 98.3 F 70 16 103/64 100 03/09/20 18:36 03/09/20 18:36 03/09/20 18:36 03/09/20 18:36 03/09/20 18:36 Interpretation: Normal - HEENT Head: Normocephalic, Atraumatic Eyes: Normal Pupils: PERRL Sinus: Normal Nasal: Normal Mouth/Lips: Normal Mucous membranes: Normal Pharynx: Normal Neck: Normal - Respiratory Respiratory status: No respiratory distress Chest status: Nontender Breath sounds: Normal Chest palpation: Normal - Cardiovascular Rhythm: Regular Heart sounds: Normal auscultation Murmur: No - Abdominal Inspection: Normal Distension: No distension Bowel sounds: Normal Tenderness: Nontender Organomegaly: No organomegaly - Rectal Hemorrhoids: Other - deferred - Genitourinary Bimanuel exam: Other - deferred - Back Back: Normal - Extremities General upper extremity: Normal inspection General lower extremity: Tender - LLE - Neurological Neuro grossly intact: Yes Cognition: Normal Orientation: AAOx4 [place] Coma Scale Eye Opening: Spontaneous [place]o Coma Scale Verbal: Oriented [place] Coma Scale Motor: Obeys Commands [place] Coma Scale Total: 15 Speech: Normal Motor strength normal: LUE, RUE, LLE, RLE Sensory: Normal - Psychological Associated symptoms: Normal affect - Skin Skin Temperature: Warm Skin Moisture: Dry Course - Vital Signs Vital signs: Temp Pulse Resp BP Pulse Ox 98.3 F 70 16 103/64 100 03/09/20 18:36 03/09/20 18:36 03/09/20 18:36 03/09/20 18:36 03/09/20 18:36 - Laboratory Result Diagrams: 03/09/20 18:58 03/09/20 18:58 Laboratory results interpreted by me: 03/09/20 03/09/20 03/09/20 18:58 18:58 18:58 Hgb 11.6 L Hct 34.6 L Beta HCG, Quant 13.60 H Urine Blood LARGE H - Diagnostic Test Radiology reviewed: Reports reviewed Critical Care Note - Critical Care Note Comments: As per HPI discussed this case with Dr. Dietz Discharge - Discharge Clinical Impression: Miscarriage, Retained prod concept-unsp, Vaginal bleeding Condition: Good Disposition: HOME, SELF-CARE Additional Instructions: Follow-up with personal doctor return to ER as needed take medicines as directed encourage fluids; also follow-up with Dr. Felicia Dietz, OB, STUDENT [employer] doctor on Thursday. Call her office for appointment. Also apply Cytotec intravaginally at nighttime Thursday; may take nausea and pain medicine prior to this. Prescriptions: Misoprostol [Cytotec 0.2 mg Tablet] 800 mcg PV HSP PRN #12 tablet PRN Reason: Forms: Return to Work Referrals: SHANNON MAGUIRE PA [Primary Care Provider] - Follow up as needed RUSS DIETZ MD [ACTIVE STAFF] - Follow up as needed
[2020-03-09] MEDS ORDERED: MISOPROSTOL 0.2 MG TABLET PV ONE (23:22)
[2020-03-09] MEDS ORDERED: ONDANSETRON ODT 4 MG TAB (6 TAB/ER DISP) PO PRN (23:25)
[2020-03-09] MEDS ORDERED: HYDROCODONE/ACETAMINOPHEN 5-325 MG (6 TAB/ER DISP) PO PRN (23:25)
[2020-03-09 23:59] VITALS: BP 105/61
== END 2020-03-09 23:58 | disposition home or self-care (01) ==
LOC: ER 18:23
DX: O02.1 Missed abortion (principal); O46.91 Antepartum hemorrhage, unspecified, first trimester; O26.891 Other specified pregnancy related conditions, first trimester; R10.9 Unspecified abdominal pain; M54.5 Low back pain; R25.2 Cramp and spasm; M79.89 Other specified soft tissue disorders; M79.605 Pain in left leg; Z3A.00 Weeks of gestation of pregnancy not specified
CPT/HCPCS: 99284; 36415; 87086; 84702; 85025; 87088; 80053; 81001; 93971; 76830; A9270 ×3

== ENCOUNTER → 2020-03-16 | Day surgery (SDC) | payer MEDICARE ==
[2020-03-13 10:54] LABS: HEMATOCRIT 33.7 % (36.0-47.0); HEMOGLOBIN 11.5 g/dL (12.0-15.5); MEAN CORPUSCULAR HEMOGLOBIN 31.8 pg (27.0-33.4); MEAN CORPUSCULAR HGB CONC 34.2 g/dL (32.0-36.0); MEAN CORPUSCULAR VOLUME 93 fl (80-97); PLATELET COUNT 323 10^3/uL (150-450); RED BLOOD COUNT 3.63 10^6/uL (3.72-5.28); RED CELL DISTRIBUTION WIDTH 13.8 % (11.5-14.0); WHITE BLOOD COUNT 5.8 10^3/uL (4.0-10.5)
[2020-03-13 10:57] LABS: APPEARANCE,URINE CLEAR; BILIRUBIN,URINE NEGATIVE (NEGATIVE); COLOR,URINE STRAW; GLUCOSE, URINE NEGATIVE (NEGATIVE); KETONES,URINE NEGATIVE (NEGATIVE); LEUKOCYTE ESTERASE,URINE TRACE (NEGATIVE); NITRITE,URINE NEGATIVE (NEGATIVE); PROTEIN,URINE NEGATIVE (NEGATIVE); URINE SPECIFIC GRAVITY 1.004; UROBILINOGEN,URINE NEGATIVE mg/dL (<2.0)
[2020-03-13 12:39] LABS: CHLAM PCR NOT DETECTED (NOT DETECT)
[2020-03-15 11:39] LABS: HEMATOCRIT 34.4 % (36.0-47.0); HEMOGLOBIN 11.7 g/dL (12.0-15.5); MEAN CORPUSCULAR HEMOGLOBIN 31.8 pg (27.0-33.4); MEAN CORPUSCULAR VOLUME 94 fl (80-97); PLATELET COUNT 337 10^3/uL (150-450); RED BLOOD COUNT 3.68 10^6/uL (3.72-5.28); WHITE BLOOD COUNT 4.9 10^3/uL (4.0-10.5)
[~2020-03-16] MED LIST: DOXYCYCLINE HYCLATE 100 MG in DEXTROSE 5%-WATER 250 ML IV PRN; LACTATED RINGERS 1000 ML IV PRN; LIDOCAINE 0.5% INJ-PF (5 MG/ML) 50 ML SDV SUBCUT PRN
--- NOTE | 2020-03-16 18:52 | RADIOLOGY REPORT (SQ) ---
EXAM DESCRIPTION: RadLex: US LIMITED CLINICAL HISTORY: 39 years Female; MISSED AB; TECHNIQUE: Transabdominal pelvic ultrasound was performed. COMPARISON: 03/09/2020 FINDINGS: Uterus: 7.9 x 5 x 3.9 cm, with 14 mm endometrial stripe. There is no discrete endometrial structures. No gestational sac or pole is identified. Cervix 1.9 cm long Right ovary: 2.5 x 1.6 x 1.5 cm. Normal vascular flow on Doppler. Left ovary: 2.6 x 1.7 x 1.3 cm. Normal vascular flow on Doppler. No free fluid. No adnexal masses. IMPRESSION: 1. Endometrial canal is smaller since 03/09/2020. No discrete endometrial structures.
== END ==
LOC: OROUT 09:11
PROVIDERS: ATTEND Student in an Organized Health Care Education/Training Program
DX: O02.1 Missed abortion (principal); E03.9 Hypothyroidism, unspecified; Z79.899 Other long term (current) drug therapy; Z53.9 Procedure and treatment not carried out, unspecified reason; Z03.818 Encounter for observation for suspected exposure to other biological agents ruled out
CPT/HCPCS: 86900; 86901; 36415 ×2; 86870; 86850; 86922; 84702; 85027; 81001; 86920; 87491; 87591; 76815; U0003; C9803; 87635; J3490; J7060